=== PATIENT | female | born 1970 | race Hispanic/Latino ===

== ENCOUNTER → 2019-10-03 | Outpatient (CLI) | payer SELFPAY ==
[~2019-10-03] MED LIST: IOHEXOL-350 50ML VIAL IV ONE
== END | disposition home or self-care (01) ==
LOC: RAH 11:01
PROVIDERS: ATTEND Internal Medicine Cardiovascular Disease
DX: I34.0 Nonrheumatic mitral (valve) insufficiency (principal)
CPT/HCPCS: 70470; Q9967